=== PATIENT | male | born 1970 | race Caucasian/White ===

== ENCOUNTER 2024-04-15 18:57 | Emergency (ER) | payer OTHER ==
[2024-04-15 19:08] VITALS: BP 125/83; PULSE 86; RESP 18; TEMP 97.8; BMI 34.4
[2024-04-15] MEDS ORDERED: ALBUTEROL SO4 2.5/IPRATROPIUM 0.5 INH SOL 3 ML VIAL.NEB. NEB ONE (20:22)
[2024-04-15] MEDS: ALBUTEROL SO4 0.083% IH SOL 2.5 MG/3 ML VIAL.NEB. NEB SCH (20:30)
[2024-04-15] MEDS ORDERED: predniSONE 20 MG TABLET (UD) ONE (20:41)
[2024-04-15] MEDS: predniSONE 20 MG TABLET (UD) PO ONE (20:45)
[2024-04-15 20:59] LABS: BASO % 1.1 % (0-2.0); EOS % 3.3 % (0-4.5); HEMATOCRIT 45.6 % (35.4-49); HEMOGLOBIN 15.7 GM/dL (11.7-16.9); LYMPH % 47.9 % (8-40); MCH 31.9 pg (25.7-33.7); MCHC 34.5 g/dl (32.0-35.9); MEAN CELL VOLUME 92.5 fl (80-96); MEAN PLT VOLUME 7.7 fl (7.5-11.1); MONO % 8.5 % (3.8-10.2); NEUT % 39.2 % (42.8-82.8); PLATELET COUNT 262 10^3/uL (134-434); RBC 4.93 M/mm3 (4.00-5.60); RDW 13.8 % (11.9-15.9); WHITE BLOOD COUNT 8.4 K/mm3 (4.0-10.0)
[2024-04-15] MEDS ORDERED: ALBUTEROL SO4 0.083% IH SOL 2.5 MG/3 ML VIAL.NEB. NEB ONE (21:37)
[2024-04-15] MEDS: ALBUTEROL SO4 0.083% IH SOL 2.5 MG/3 ML VIAL.NEB. NEB ONE (21:40)
[2024-04-15 22:55] LABS: POTASSIUM 3.5 mmol/L (3.5-5.1)
[2024-04-15 22:58] LABS: ALBUMIN 4.1 g/dl (3.4-5.0)
[2024-04-15 22:59] LABS: BLOOD UREA NITROGEN 12.8 mg/dL (7-18)
[2024-04-15 23:03] LABS: BILIRUBIN,TOTAL 1.4 mg/dL (0.2-1); CREATININE 0.9 mg/dL (0.55-1.3); TOT PROT 7.5 g/dl (6.4-8.2)
[2024-04-15 23:06] LABS: N-TERMINAL BNP 39.8 pg/ml (5-125)
== END 2024-04-15 23:33 | disposition home or self-care (01) ==
LOC: JER 18:57
PROC: 3E0F7GC Introduction of Other Therapeutic Substance into Respiratory Tract, Via Natural or Artificial Opening (ICD-10-PCS; principal; 2024-04-15)
PROC: 3E0F7GC Introduction of Other Therapeutic Substance into Respiratory Tract, Via Natural or Artificial Opening (ICD-10-PCS; 2024-04-15)
DX: R07.89 Other chest pain (principal); R06.02 Shortness of breath; R06.2 Wheezing
CPT/HCPCS: 36415; 71046-TC-FY; 80053; 83880; 84484; 85025; 93005; 93010; 99285-25